=== PATIENT | male | born 1930 | race Caucasian/White ===

== ENCOUNTER 2017-04-18 13:28 | Emergency (ER) | payer OTHER, MEDICARE ==
[~2017-04-18] VITALS: Ht 170.2 cm; Wt 73.9 kg
[~2017-04-18 13:28] MED LIST: AMARYL4 M1 PO; ATENOLOL25 M1 PO; ATENOLOL50 M1 PO; CEFUROXIME500 MG PO; CLOPIDOGREL75 M1 PO; DOXYCYCLINE HY100 M2 PO; DOXYCYCLINE HY100 M4 PO; ELIQUIS2.5 M1 PO; ELIQUIS5 M1 PO; FUROSEMIDE20 M1 PO; GLIMEPIRIDE4 M1 PO; KEFLEX500 M1 PO; LEVOTHYROXINE75 MCG PO; SIMVASTATIN20 M2 PO; TENORMIN50 M1 PO; ULTRAM50 M1 PO; VIBRAMYCIN100 MG PO
[2017-04-18] MEDS ORDERED: TENORMIN25 M1 PO (13:56)
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
[2017-04-18 15:59] LABS: ABSOLUTE BASOPHIL COUNT 0 /CUMM (0.0-0.2); ABSOLUTE EOSINOPHIL COUNT 0.1 /CUMM (0.0-0.7); ABSOLUTE GRANULOCYTE CT 7.1 /CUMM (1.4-6.5); ABSOLUTE LYMPH COUNT 2.8 /CUMM (1.2-3.4); ABSOLUTE MONOCYTE COUNT 0.8 /CUMM (0.10-0.60); BASOPHIL % 0.3 % (0.0-2.0); EOSINOPHIL % 0.8 % (0-5); GRANULOCYTE % 65.5 % (42.2-75.2); HEMATOCRIT 38.2 % (42-52); MEAN CORPUSCULAR HGB 30.9 PG (27.0-31.0); MEAN CORPUSCULAR HGB CONC 33.7 G/DL (33.0-37.0); MEAN CORPUSCULAR VOLUME 91.8 FL (80.0-94.0); MEAN PLATELET VOLUME 8.5 FL (7.4-10.4); PLATELET COUNT 225 /CUMM (130-400); RBC DISTRIBUTION WIDTH 15.2 % (11.5-14.5); RED BLOOD CELL CT 4.16 /CUMM (4.70-6.10); WHITE BLOOD CELL COUNT 10.8 /CUMM (4.8-10.8)
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
--- NOTE | 2017-04-18 17:58 | CT SCAN REPORT ---
EXAMINATION: CT HEAD WITHOUT CONTRAST CLINICAL INFORMATION: Sudden change in behavior. COMPARISON: CT head 09/18/2015 TECHNIQUE: Contiguous axial imaging was performed from the skull base to vertex without intravenous administration of contrast. DLP: 640.83 mGy-cm FINDINGS: There is no evidence of acute intracranial hemorrhage or acute territorial infarction. No abnormal mass effect or midline shift is seen. Torres to white matter differentiation is well preserved. No extra-axial fluid collections are identified. There is atrophy with prominence of the ventricles and the sulci and hypodensity of the periventricular white matter due to chronic small vessel ischemic disease. There is vascular calcifications of the internal carotid arteries and vertebral arteries bilaterally. There are chronic linear lacunar infarcts at the external capsule in the right basal ganglia. The osseous structures and soft tissues are normal. The mastoid air cells and visualized portions of the paranasal sinuses are well aerated. IMPRESSION: No acute intracranial pathology.
[2017-04-18 20:12] VITALS: BP 146/72
== END 2017-04-18 20:40 ==
LOC: ERH 13:28
PROVIDERS: Emergency Medicine
DX: F43.20 Adjustment disorder, unspecified (principal); R45.851 Suicidal ideations; R45.4 Irritability and anger; I10 Essential (primary) hypertension; I48.91 Unspecified atrial fibrillation; E11.9 Type 2 diabetes mellitus without complications; E03.9 Hypothyroidism, unspecified
CPT/HCPCS: 80307; 81003; 93005; 93010; G0463; G0480